=== PATIENT | female | born 1980 | race Hispanic/Latino ===

== ENCOUNTER 2016-11-27 10:10 | Day surgery (SDC) | payer OTHER ==
[~2016-11-27] VITALS: Ht 144.8 cm; Wt 55.8 kg
[2016-11-27] VITALS (13 sets, daily range): BP systolic 105–122; BP diastolic 51–88; PULSE 63–76; RESP 11–17; O2SAT 91–100
[~2016-11-27 10:10] MED LIST: ACET325T51 PO; BUPR-97 PO; BUSP15TA3 PO; CITA20TA11 PO; CLON0.122 PO; CeFAZolin 2 Gm/50 mL D5W IV Premix IV ONE; MULT-1018 PO; ZLP5T PO; remicade IV
[2016-11-27] MEDS ORDERED: Glycopyrrolate 0.2 mg/mL 5 mL Inj ONE (10:11)
[2016-11-27] MEDS ORDERED: Propofol 10,000 mCg/mL 20 mL Inj ONE (10:11)
[2016-11-27] MEDS ORDERED: HYDROmorphone 2 mg/mL Inj ONE (10:11)
[2016-11-27] MEDS ORDERED: Rocuronium 10 mg/mL 5 mL Inj ONE (10:11)
[2016-11-27] MEDS ORDERED: fentaNYL-PF 50 mCg/mL 2 mL Inj ONE (10:11)
[2016-11-27] MEDS ORDERED: Dexamethasone 4 mg/mL Inj ONE (10:11)
[2016-11-27] MEDS ORDERED: Ondansetron 2 mg/mL 2 mL Inj ONE (10:11)
[2016-11-27] MEDS: Lactated Ringer's 1,000 ML IV SCH ×2 (10:33→13:18)
[2016-11-27] MEDS ORDERED: CeFAZolin 2 Gm/50 mL D5W Duplex Bag IV ONE (10:37)
--- NOTE | 2016-11-27 12:43 | PCM.HPANE ---
Patient Data Surgeon Admitting Provider: Attending Provider:Danny Wei MD Primary Care Physician:Cuca Vaughan Other Provider:Raimundo Johnson Anesthesia Reason for Visit Breast Ptosis, Excess Skin Of Abdominal Wall Ht/WT & BMI Height (Feet): 4 Height (Inches): 9.00 Weight (Kilograms): 55.8 Body Mass Index 26.00 Allergies Coded Allergies: hydrocodone (Verified Allergy, Severe, n/v, increased pulse, 11/27/16) methotrexate (Verified Allergy, Severe, decreased blood pressure, 11/27/16) oxycodone (Verified Allergy, Unknown, n/v increased pulse, 11/27/16) Past Anesthesia History Anesthesia History: Denies:: Abnormal Airway, Anesthesia Reactions, Difficult Intubation, Fam Anesthesia Reaction, Fam Malignant Hypertherm, Malignant Hyperthermia Diabetes History Hx Diabetes?: No MRSA MRSA: No Medications Home Meds Incl Beta Essence: No Reported Medications Bupropion ER (Wellbutrin XL)150 Mg Tab.[id number] Mg PO QAM Ref 0 10/28/16 Citalopram 20 Mg Sirnli63 Mg PO DAILY Ref 0 10/28/16 Acetaminophen 325 Mg [id number] Mg PO BID PRN For Fever Ref 0 08/05/16 Multivitamin (Multi Vitamin Daily)1 Each Tablet1 Each PO DAILY 30 Days Ref 0 08/05/16 Buspirone 15 Mg [id number] Mg PO QPM Ref 0 08/05/16 Clonazepam ODT 0.125 Mg Tablet0.125 Mg PO DAILY PRN For Anxiety Ref 0 08/05/16 Zolpidem (Ambien)5 Mg Tablet5 Mg PO HS PRN For Insomnia Ref 0 02/17/16 [remicade] No Conflict [id number] Mg IV [id number] 5mg/kg Remicade IV 05/26/10 History History of ENT Problems?: No HEENT History: Denies:: Abnormal Airway Cataracts Difficult Intubation Dysphagia Hearing Problem Sinus Problem Other HEENT Pertinent History: hx of bilateral Lasik Hx of Heart Problems?: No Cardiovascular History: Denies:: AICD Atrial Fibrillation Chest Pain Congestive Heart Failure Hypertension Pacemaker Valvular Heart Disease Hx of Respiratory Problem?: No Respiratory History: Denies:: Asthma COPD Cough Hemoptysis Oxygen Administration Pneumonia Tuberculosis Use of C-PAP Machine (sleep study - no CPAP recommended) Hx Neurologic Problems?: Yes Neurological History: Positive for:: Headaches (migraine by history, pt denies ) Denies:: Alzheimer's Disease CVA Dementia Dizziness Parkinson's Disease Seizures Hx of GI Problems?: Yes Gastrointestinal History: Denies:: Cirrhosis Diverticulitis Gastroesphageal Reflux Gastrointestinal Bleeding Heartburn Hepatitis Hiatal Hernia Rectal Bleeding Other GI Pertinent History: Ulcerative colitis- recent hx of C difficile- no current problems. Takes remicade [id number] Hx of Problems?: No Genitourinary History: Denies:: HX of Hemodialysis Kidney Stones Urinary Tract Infection HX of Peritoneal Dialysis: No Female Hx: Positive for:: Problems with Breasts? (current problem breast ptosis) Denies:: Currently Endometriosis Pelvic Inflammatory Skin History: Denies:: History Skin Disorders? Pressure Ulcers Hx Musculoskeletal Problems?: Yes Musculoskeletal History: Denies:: Back Injury Joint Replacement Musculoskeletal Trauma Hx of Psycho/Social Problems?: No Psycho Social History: Positive for:: Anxiety Hx Depression Denies:: Bipolar Disorder Suicide Attempt Hx Surgeries?: Yes (appy) Hx Any Other Health Problems?: Yes Other History: Denies:: Cancer Endocrine Disease Thyroid Disease History Blood Transfusions: Positive for:: Accept Blood Products? Blood Transfuse Reaction Blood Transfusions Hx Diabetes: No Hx Alcohol Use: NoHx Substance Use: No Smoking Status: Never Smoker Have You Smoked inLast 12 mo: No Stop/Bang S-Snoring: Do You Snore Loudly: No T-Tired: feel tired, fatigued: No O-Obsered: Observed not breath: No P-Blood Pressure: treated: No B- Body Mass Index > 35 kg/m2: No A- Age over 50: No N- Neck Large Circumference: No G- Gender Male: No KG Total Score: 0 Risk Assessment Category Category 1A: Patient has history of documented sleep apnea, and HAS NOT received any narcotic, sedative or anesthesia administration during this stay. Category 1B: Patient has history of documented sleep apnea, and HAS received any narcotic , sedative or anesthesia administration during this stay Category 2: Patient has SUSPECTED Obstructive Sleep Apnea, and HAS received any narcotic , sedative or anesthesia administration during this stay. Category 3: Patient has SUSPECTED Obstructive Sleep Apnea and HAS NOT received narcotic, sedative or anesthesia administration during this stay. Category 4: Outpatient in Procedural Areas with known sleep apnea or who screen positive for High Risk via the STOP/BANG questionnaire. Exam Exam Vital Signs Vital Signs Date Time Temp Pulse Resp B/P Pulse Ox O2 Delivery O2 Flow Rate FiO2 11/27/16 10:33 36.1 76 16 108/78 98 Room Air General Appearance: Alert, Oriented X3, Cooperative, Mild Distress HEENT/AIRWAY: MP 2, Neck Movement (from), Mouth Opening (wnl) Lungs: Clear to Auscultation Heart: Exam Unremarkable Meds/Labs/Diagnostics Admission Meds Current Medications Lactated Ringer's (Lr) 1,000 ml @ 120 mls/hr [id number] IV Last administered on t 10:33; Start 11/27/16 at 05:00; Stop 11/27/16 at 13:19 Plan Impression Patient chart reviewed, patient interviewed and anesthestic plan with risks, benefits, and alternatives discussed, and informed consent obtained. NPO Status: 11/26/162099 ASA Physical Status: ASA2 Mod Systemic Disease Anesthetic Plan: GA Bene/Risks/Altern/Consents: Yes HP Complete Prior to Induction: Yes Ra Hansen MD Nov 27, 2016 12:43
[2016-11-27] MEDS ORDERED: Atropine 0.4 mg/mL Inj IVPUSH PRN (13:35)
[2016-11-27] MEDS ORDERED: Dexamethasone 4 mg/mL Inj IVPUSH PRN (13:35)
[2016-11-27] MEDS ORDERED: hydrOXYzine Inj 25 MG/1 mL SDV IM PRN ×2 (13:35→21:05)
[2016-11-27] MEDS ORDERED: Lactated Ringer's 1,000 ML IV SCH ×2 (13:35→21:01)
[2016-11-27] MEDS ORDERED: Labetalol 5 mg/mL 4 mL Inj IV PRN (13:35)
[2016-11-27] MEDS ORDERED: Lactated Ringer's 500 ML IV PRN ×2 (13:35→21:01)
[2016-11-27] MEDS ORDERED: EPHEDrine Sulfate 50 mg/mL Inj IM PRN ×2 (13:35→21:05)
[2016-11-27] MEDS ORDERED: HYDROmorphone 1 mg/mL Inj IVPUSH PRN (13:35)
[2016-11-27] MEDS ORDERED: Phenylephrine 10,000 mCg/mL Inj IVPUSH PRN (13:35)
[2016-11-27] MEDS ORDERED: hydrALAZINE 20 mg/mL Inj IVPUSH PRN (13:35)
[2016-11-27] MEDS ORDERED: EPHEDrine Sulfate 50 mg/mL Inj IVPUSH PRN (13:35)
[2016-11-27] MEDS ORDERED: Ondansetron 2 mg/mL 2 mL Inj IVPUSH PRN ×2 (13:35→21:05)
--- NOTE | 2016-11-27 17:09 | PCM.ANEP1 ---
Post Anesthesia Phase 1 PACU Phase 1 Assessment Vital Signs Vital Signs Date Time Temp Pulse Resp B/P Pulse Ox O2 Delivery O2 Flow Rate FiO2 11/27/16 10:33 36.1 76 16 108/78 98 Room Air Anesthetic Administered: GA Level of Alertness: Awake, talking PETERSON's with Equal Strength: Yes Pain: Yes Nausea or Vomiting: No Oxygen Delivery: Room Air Lungs: Normal Air Movement Ra Hansen MD Nov 27, 2016 17:09
[2016-11-27] MEDS: fentaNYL-PF 50 mCg/mL 2 mL Inj IVPUSH PRN ×2 (17:14→17:20)
--- NOTE | 2016-11-27 18:35 | PCM.ANEP2 ---
Post Anesthesia Evaluation ASA/CMS Post Anesthesia VS in Patient's Normal Range?: Yes Resp Stable; Airway Patent?: Yes CV Function & Hydration Stable: Yes Mental Status Recovered?: Yes Pain control Satisfactory?: Yes N/V Control Satisfactory?: Yes Ra Hansen MD Nov 27, 2016 18:35
[2016-11-27] MEDS ORDERED: Acetaminophen IV 1,000 MG in IV Premix 1 EACH IV ONE (21:05)
--- NOTE | 2016-11-28 06:23 | NUR ---
Admit/DC Pt arrived to [facility] [place] [facility] to finish recovering. Pt was in no pain upon arrival but stated she had a headache 07/03. Pt was able to transfer from [facility] to bed. Pt became nauseated during the transfer. Abdominal binder in place and MITA drains draining sero-sanguineous fluid. MD notified of nausea and headache and orders for Zofran and IV Tylenol were given. Administered 8mg Zofran as well as IV Tylenol. Pt became very upset and very anxious and was adamant about going home to "get some rest". Exdplained to pt that having her nausea under control before she left was a priority. Pt very tearful and wanting to leave. Zofran and Tylenol were effective and pt was able to go home. VSS and pt was not on Tele. Support bra in place when pt left and DC teaching given.
--- NOTE | 2016-11-28 10:24 | OP ---
[address] [address] OPERATIVE REPORT PATIENT: MARNIE AUGUSTIN : 1980 MR#: [id number] ADMIT: 11/27/2016 JOB ID: [id number] CORRECTED REPORT: DATE OF SURGERY: 11/27/2016. PREOPERATIVE DIAGNOSIS(ES): 1. Bilateral breast ptosis. 2. Excess abdominal skin. POSTOPERATIVE DIAGNOSIS(ES): 1. Bilateral breast ptosis. 2. Excess abdominal skin. PROCEDURE: 1. Bilateral periareolar mastopexy. 2. Abdominoplasty. SURGEON: Danny Wei MD DIRECTOR OF ANCILLARY SERVICES: Chapis Argueta PA-C and Francie Santana PA-C who were present for necessary retraction exposure and closure of incisions. ANESTHESIA: General anesthesia. ESTIMATED BLOOD LOSS: 50 cc. COMPLICATIONS: None apparent. SPECIMEN: None. DRAINS: A #15 round Kb drain x2 in the abdominal surgical site. INDICATIONS FOR PROCEDURE: This is a 36 year female patient presenting with bilateral breast ptosis as well as undesirable abdominal contour. At this point, bilateral breast lift (mastopexy) and abdominoplasty are indicated. PROCEDURE AND FINDINGS: The patient was identified in the preoperative area and surgical sites were marked. With the patient in sitting position, the desired nipple position was determined and marked at 19 cm. A periareolar reduction marking was then marked. The patient was then asked to stand up and put on her usual undergarment. The border of the undergarments were marked. Patient was then taken back to the operating room and placed supine on the operating table. Appropriate time-outs were taken. General anesthesia was induced smoothly. At this point, I reinforced the mastopexy markings. I then designed an abdominoplasty incision that incorporates her previous scar which was quite low and extends laterally along the groin crease to sit within the silhouette of her undergarment. The patient was then prepped and draped in the usual sterile manner. I first turned my attention to her right breast. Using a 42 mm nipple sizer I marked a new nipple-areolar complex on the right breast. Incision was then made along the previously made brigitte for the periareolar mastopexy. Once this has been made it was deepened down to the dermis with a #15 blade. I then made another incision 5 mm in site of the periareolar incision. The intervening skin was then de-epithelialized. I then deepened the incision along the new nipple-areolar complex down into the underlying subcutaneous tissue. This was done with electrocautery. The incision was then made at the edge of the inner border of the de-epithelialized rim of skin and the normal skin with electrocautery. The skin between the nipple-areolar complex and the de-epithelialized rim of skin was then excised with electrocautery. Once this has been done, I elevated the skin flap circumferentially. Superiorly the skin flap was elevated for approximately 4 cm. Medially and laterally the elevation was approximately 2 cm, inferiorly was 1 cm. This allowed the proper mobilization of skin. Once this has been done, a 2-0 Herbster-Alexis suture was then run along the inner edge of the de-epithelialized portion of the skin in a pursestring manner. It was then tied down. It was tensioned such that the residual opening of the new nipple-areolar complex keyhole was 42 mm. Once this has been done, Herbster-Alexis suture was tied down and the knot was buried down deep in the deep breast tissue. The nipple-areolar complex was then sutured to the keyhole with a layer of 3-0 Monocryl deep dermal suture in the 8 cardinal directions. Once this had been done, a 42 mm nipple sizer was then used at the keyhole again. A small amount of skin was excised to make the nipple-areolar complex keyhole completely round. Once this has been done, a layer of 4-0 Monocryl deep dermal sutures was then placed circumferentially for final epidermal reapproximation. I then turned my attention to the left breast where a similar lift procedure was carried out. Again, a 42 mm nipple sizer was used to brigitte the new nipple-areolar complex. Incision was then made around the mastopexy incision that was previously marked with a 5 mm rim of de-epithelialized dermis. The skin between the de-epithelialized portion of the incision and the nipple-areolar complex was then removed. Circumferential elevation was carried out enough to allow full mobilization of the skin to the lift. Once this has been done, the pursestring suture was then made with 2-0 Herbster-Alexis and that was buried deeply. The nipple-areolar complex was 1st incised with a layer of 3-0 Monocryl deep dermal sutures. The keyhole was then re-round with a 42 mm nipple sizer. Final epidermal reapproximation was then carried out with a 4-0 Monocryl simple running subcuticular suture circumferentially. Once this has been done. I turned my attention to the abdomen. Incision was then made in her previously marked abdominoplasty incision. This was deepened down to the underlying fascia. Centrally at the area of her previous , the scar was carefully elevated off the underlying fascia. I then elevated the skin flap off of the underlying fascia to the area of the umbilicus. Incision was then made around the umbilicus with a #15 blade. This was then deepened down to the underlying fascia with care taken to leave approximately 1 cm cuff of fat completely around the umbilical stalk. Once this has been done I continued to elevate the skin flap up to the xiphoid centrally and to the costal margin bilaterally. Hemostasis was obtained with electrocautery. Once this has been done. I then performed abdominal plication with a 2-0 looped PDS suture. This was started at the xiphoid. As I approached the umbilicus I plicated more fascia, approximately 3 cm on each side. This was done until I reached the umbilicus. Another layer of plication suture was then started from the pubis. Again, this was plicated up to the umbilicus taking approximately 3 cm of excess fascia on each side. Once this has been done, that was flexed into a 30 degree position. Excess abdominal flap was then measured and marked. It was then excised 1st with a #10 blade followed by electrocautery. Excess sub-Vaibhav's fat was removed as much as possible with electrocautery. Once this has been done, the incision was temporarily closed. The umbilical position was then marked by palpation. A chevron incision was then made directly over the umbilicus. Through this a chevron incision a cone of soft tissue was removed with electrocautery. The umbilicus was then externalized and sutured in place first with two 3-0 Monocryl deep dermal sutures at the superior and inferior aspect of the umbilicus. Circumferential 4-0 Monocryl deep dermal sutures were then placed, followed by 4-0 Monocryl running subcuticular suture. Two drains were then placed along the left side and right side of the surgical site exiting around the pubis. Layers of 3-0 Vicryl eoqraz-bz-yujby sutures were then placed, reapproximating the Vaibhav's fascia from the iliac crest to the crest. A layer of 3-0 Monocryl deep dermal sutures were then placed, followed by 4-0 Monocryl running subcuticular suture. The patient tolerated the procedure well. Needle count, sponge count, and instrument counts were correct at the end of the procedure. Patient was extubated and transported to recovery in stable condition. The patient was then placed into a snug abdominal binder and a surgical bra. Corrected by DEENA 01/21/17 at 8:07am Corrected PF
== END 2016-11-27 22:42 | disposition home or self-care (01) ==
LOC: SAS 10:10 → MOC 20:48 → SAS 22:42
PROVIDERS: ATTEND Plastic Surgery
DX: N64.81 Ptosis of breast (principal); L91.9 Hypertrophic disorder of the skin, unspecified; G25.81 Restless legs syndrome; K51.90 Ulcerative colitis, unspecified, without complications; F41.9 Anxiety disorder, unspecified; F32.9 Major depressive disorder, single episode, unspecified
CPT/HCPCS: 15830; 15847; 19316; J0131; J0690; J1100; J1170; J2250; J2405; J7120

== ENCOUNTER 2017-03-28 18:16 | Emergency (ER) | payer OTHER ==
[~2017-03-28] VITALS: Ht 144.8 cm; Wt 54.5 kg
[~2017-03-28 18:16] MED LIST changes: -CeFAZolin 2 Gm/50 mL D5W IV Premix IV ONE
[2017-03-28 18:19] VITALS: BP 118/79; PULSE 64; RESP 16; O2SAT 100
--- NOTE | 2017-03-28 18:32 | ED.REPORT ---
HPI-General Illness Date of Service March 28, 2017 ED Provider: Del Lopez MD The pt is a 36 y/o female w/ a hx of ulcerative colitis and anxiety presenting to the ED complaining of face, neck, and L shoulder pain onset two weeks ago. She was moving objects around the house when the pain began but heat and massage have not helped. The pain is sharp and pulsing from her L maxilla, down the posterior portion of her L neck, down her L arm and into her back. She also reports left cheek numbness and experiencing migraines, which is unusual for her. Tylenol has not helped w/ the pain. The pt denies any vision changes or lower extremity pain. She takes Remicade for her ulcerative colitis and Ambien to help her sleep. Nursing Notes Stated Complaint: FACIAL NUMBNESS,SHARP PAIN,NECK/SHOULDER Chief Complaint: General Complaint Nursing Notes Reviewed: Yes Allergies: Coded Allergies: hydrocodone (Verified Allergy, Severe, n/v, increased pulse, 03/28/17) methotrexate (Verified Allergy, Severe, decreased blood pressure, 03/28/17) oxycodone (Verified Allergy, Unknown, n/v increased pulse, 03/28/17) Scheduled ([remicade]) 300 MG IV [id number] 5mg/kg Remicade IV Gabapentin (Gabapentin) 300 Mg Capsule 300 MG PO BID Multivitamin (Multi Vitamin Daily) 1 Each Tablet 1 EACH PO DAILY Scheduled PRN Zolpidem (Ambien) 5 Mg Tablet 5 MG PO HS PRN PRN For Insomnia General Time Seen by MD: 18:30 Chief Complaint Other (L neck pain ) Hx Obtained From: Patient Arrived By: Walk-in Sudden in Onset?: Yes Onset Occurred: More than a week ago... (2 weeks) Symptom Duration: Since onset Recent Healthcare: No recent doctor visit, No recent hospitalization Similar Sx Previous: No Past Medical History Past Medical History Headaches Ulcerative Colitis Anxiety Depression with suicidal ideations Past Surgical History noncontributory Smoking History Never Smoker Social History Alcohol Use: "Social" Drug Use: Denies drug use Other Social History: Poor social support, Lives with children, Local resident Ambulatory Status Independent Review of Systems L cheek and pain and numbness. Full Review of Systems Constitutional: Denies: Chills, Fever Eyes: Denies: Blurred bilateral Respiratory: Denies: Non-productive cough Musculoskeletal: Reports: Back pain, Extremity pain (L arm), Neck pain (L posterior ) Neurologic: Reports: Headache, Denies: Vision change Complete sys rev & neg: except as marked. Physical Exam Vital Signs Vital Signs Date Time Temp Pulse Resp B/P Pulse Ox O2 Delivery O2 Flow Rate FiO2 03/28/17 20:36 36.8 65 17 102/75 98 Room Air 03/28/17 18:19 36.8 64 16 118/79 100 Room Air Initial VS: Reviewed General/Constitutional: Awake, Alert Head / Eyes: Atraumatic, Normocephalic, PERRL, EOMI L maxillary tenderness to percussion L temporal tenderness ENT: Atraumatic, Airway patent Neck: Supple, Full range of motion, No adenopathy Respiratory / Chest: Breath sounds NL, No respiratory distress, No rales, No rhonchi, No wheezing Cardiovascular: Heart rate NL, Regular rhythm, Heart sounds NL, No gallop, No murmurs, No rubs Abdomen: Atraumatic, Soft, Non-tender Back: Atraumatic, Full range of motion Skin: Atraumatic, Warm, Dry Neurologic: Oriented X3, Speech NL, No motor deficits, No sensory deficits, CN II - XII intact Facial sensation normal No facial droop No facial asymmetry Water Vessel Captain are symmetric UE strength intact Interpretation & Diagnostics Lab Results Interpretation Result Diagram: 03/28/171939 Test 03/28/17 19:40 03/28/17 21:28 White Blood Count 7.3th/mm3 (3.8-10.1) Red Blood Count 4.49mil/mm3 (3.90-5.20) Hemoglobin 14.8g/dL (12.0-15.6) Hematocrit 42.3% (35.0-46.0) Mean Corpuscular Volume 94.2fL (81-100) Mean Corpuscular Hemoglobin 33.0pg (27.0-35.0) Mean Corpuscular Hemoglobin Concent 35.0% (32.0-37.0) Red Cell Distribution Width 11.9% (12.3-15.4) Platelet Count 253bil/L (150-400) Neutrophils (%) (Auto) 56.5% (40-74) Lymphocytes (%) (Auto) 29.5% (14-46) Monocytes (%) (Auto) 9.8% (4-12) Eosinophils (%) (Auto) 3.2% (0-5) Basophils (%) (Auto) 0.7% (0-3) Erythrocyte Sedimentation Rate 23mm/hr (0-32) Hold Arcos Top Tube Received (Received) Hold Urine Received (Received) CT Head Interpretation IMPRESSION: No acute intracranial abnormality. Dictated by: Karen Clark M.D. on 03/28/2017 at 19:34 Approved by: Karen Clark M.D. on 03/28/2017 at 19:35 Study: Head CT no contrast Interpretation / Wet Read by: Interpret - Radiologist Re-Eval/Medical Decision Source of Hx: Old records Time of Eval: 21:18 Patient Status: Condition improved Re-Evaluation/Progress Note: Pt rechecked. Informed pt of plan for treatment. Pt understands and agrees with plan for treatment. F/U instructions and RTER warnings given. All questions addressed. Counseled Regarding: Diagnosis, Lab results, Need for follow-up, When/why to return to ED Discharge & Departure Primary Impression: Neck pain on left side Disposition: Home Discharge Condition All VS Reviewed: Yes Condition: Stable Additional Instructions: Emergency Department evaluation included an examination CT brain and labs. Prior records were reviewed. No serious cause for neck pain and facial numbness is identified, we will attempt treatment of symptoms with gabapentin. Take gabapentin as prescribed. Watch for sedation (sleepiness) when taking this medication. Do not drive if it is making you sleepy. Follow-up with primary care in 3 days as planned. Continue previous home medications. Follow up in the emergency department for new weakness on one side or severe headache. Referrals: Cuca Vaughan (PCP) Scribe Attestation Portions of this note were transcribed by Min Varela and Brady Anderson. I, Dr. Lopez personally performed the history, physical exam and medical decision- making; I reviewed and confirmed the accuracy of the information in the transcribed note. Signed by: Jordan Francisco, 03/28/17 and 2699. copies to: Cuca Vaughan Donald L MD March 28, 2017 18:32 Min Varela March 28, 2017 19:02 BRADY ANDERSON March 28, 2017 21:07
--- NOTE | 2017-03-28 19:37 | DRSVH ---
PROCEDURE: CT BRAIN WITHOUT CONTRAST ([id number]) INDICATIONS: L facial numbness TECHNIQUE: Noncontrast 4.5 mm thick angled axial sections acquired from the foramen magnum to the vertex, with c oronal reformats. COMPARISON: [facility], MR, MS BRAIN W & W/O CONT, 05/18/2014, 15:07. FINDINGS: Image quality: Excellent. CSF spaces: Basal cisterns are patent. No extra-axial fluid collections. Ventricles are normal in size and shape. Brain: No midline shift. No intracranial masses or hemorrhage. [place]-white matter interface is norm al. Skull and face: Calvarium and visualized facial bones are intact, without suspicious lesions. Sinuses: Visualized sinuses and mastoids are clear. IMPRESSION: No acute intracranial abnormality. Dictated by: Karen Clrak M.D. on 03/28/2017 at 19:34 Approved by: Karen Clark M.D. on 03/28/2017 at 19:35
[2017-03-28 19:51] LABS: BASOPHILS % (AUTO) 0.7 % (0-3); EOSINOPHILS % (AUTO) 3.2 % (0-5); MONOCYTES % (AUTO) 9.8 % (4-12); Mean Corpuscular Volume 94.2 fL (81-100); NEUTROPHILS % (AUTO) 56.5 % (40-74); Platelet Count 253 bil/L (150-400)
[2017-03-28 20:36] VITALS: BP 102/75; PULSE 65; RESP 17; O2SAT 98
[2017-03-28 20:55] LABS: ERYTHROCYTE SEDIMENTATION RATE 23 mm/hr (0-32)
[2017-03-28] MEDS ORDERED: GABA-502 PO (21:25)
== END 2017-03-28 21:50 | disposition home or self-care (01) ==
LOC: SED 18:16
DX: M54.2 Cervicalgia (principal); Z88.5 Allergy status to narcotic agent; Z88.8 Allergy status to other drugs, medicaments and biological substances